=== PATIENT | male | born 1940 | race Caucasian/White ===

== ENCOUNTER 2018-05-08 15:59 | Emergency (ER) | payer OTHER ==
[~2018-05-08] VITALS: Ht 177.8 cm; Wt 79.4 kg
[2018-05-08] MEDS ORDERED: VESICARE5 MG (16:21)
[2018-05-08] MEDS ORDERED: ATACAND HCT 161 EACH (16:22)
[2018-05-08] MEDS ORDERED: METFORMIN HCL850 MG (16:22)
[2018-05-08] MEDS ORDERED: OMEPRAZOLE20 MG (16:23)
[2018-05-08] MEDS ORDERED: [UNRECOGNIZED DRUG - OTHER] (16:24)
== END 2018-05-08 20:51 | disposition home or self-care (01) ==
LOC: ER 15:59
DX: G45.8 Other transient cerebral ischemic attacks and related syndromes (principal)

== ENCOUNTER 2018-06-06 09:25 | Outpatient (CLI) | payer OTHER ==
[~2018-06-06 09:25] MED LIST: ATACAND HCT 161 EACH; METFORMIN HCL850 MG; OMEPRAZOLE20 MG; VESICARE5 MG; [UNRECOGNIZED DRUG - OTHER]
== END 2018-06-06 09:34 | disposition home or self-care (01) ==
LOC: MRI 09:25
DX: G45.8 Other transient cerebral ischemic attacks and related syndromes (principal)
CPT/HCPCS: 70551